=== PATIENT | male | born 1935 | race Caucasian/White ===

== ENCOUNTER 2019-09-03 08:56 | Day surgery (SDC) | payer MEDICARE ==
[~2019-09-03] VITALS: Ht 162.6 cm; Wt 57.2 kg
[~2019-09-03 08:56] MED LIST: COLACE 100100 MG/CAP PO; ELIQUIS 5MG PO; LINZESS290CAP PO; LOPRESSOR 225 MG/TAB PO; MIRALAX PA17 GM/Dose PO; NORVASC 10MG10 MG PO; TAMBOCOR150 MG PO
--- NOTE | 2019-09-03 09:15 | NUR ---
20g PERIPHERAL IV INSERTED TO LEFT FOREARM. LABS DRAWN UPON INSERTION AND SENT TO LAB.
[2019-09-03 09:25] VITALS: BP 169/85; PULSE 59; TEMP 98.1
--- NOTE | 2019-09-03 09:30 | NUR ---
CALLED PATIENCE, RT, FOR EKG BUT RT BUSY IN ED AT THIS TIME.
[2019-09-03] MEDS ORDERED: PACERONE200 MG PO (09:33)
[2019-09-03] MEDS ORDERED: ASPIRIN 81M81 MG/TA2 PO (09:33)
[2019-09-03] MEDS ORDERED: ELIQUIS 2.5 PO (09:35)
[2019-09-03] MEDS ORDERED: ALAVERT10 M1 PO (09:35)
[2019-09-03] MEDS ORDERED: PLETAL50 MG PO (09:36)
[2019-09-03] MEDS ORDERED: LIPITOR 80MG80 MG PO (09:36)
[2019-09-03] MEDS ORDERED: ZANTAC 150MG T150 MG PO (09:37)
[2019-09-03 09:44] LABS: POTASSIUM 4.3 mmol/L (3.4-5.0)
[2019-09-03 09:56] LABS: INR 1.4 (0.8-3.0); PROTHROMBIN TIME 16.1 SECONDS (9.7-12.8)
--- NOTE | 2019-09-03 10:19 | NUR ---
CONSENT SIGNED AND ON CHART. PATIENCE COMPLETING EKG AT THIS TIME.
--- NOTE | 2019-09-03 10:37 | NUR ---
PROCEDURE CANCELED BY DR JOHNSON D/T PT BEING IN SR WITH RATE CONTROLLED. EKG TO CONFIRM. PERIPHERAL IV DISCONTINUED TO LEFT FOREARM. PATIENT ABLE TO DRESS INDEPENDENTLY. PATIENT AMBULATED TO EXIT WITH FAMILY. NO DISCHARGE INSTRUCTIONS REQUIRED.
== END 2019-09-03 15:00 | disposition home or self-care (01) ==
LOC: COL.CAR 08:56
PROVIDERS: Internal Medicine Interventional Cardiology
DX: I48.0 Paroxysmal atrial fibrillation (principal); I25.10 Atherosclerotic heart disease of native coronary artery without angina pectoris; I10 Essential (primary) hypertension; I48.92 Unspecified atrial flutter; I47.1 Supraventricular tachycardia; I73.9 Peripheral vascular disease, unspecified; Z86.73 Personal history of transient ischemic attack (TIA), and cerebral infarction without residual deficits; Z95.1 Presence of aortocoronary bypass graft; Z87.891 Personal history of nicotine dependence; Z79.01 Long term (current) use of anticoagulants; Z79.82 Long term (current) use of aspirin; Z88.8 Allergy status to other drugs, medicaments and biological substances; Z88.6 Allergy status to analgesic agent; Z91.018 Allergy to other foods
CPT/HCPCS: J2704; J7030

== ENCOUNTER 2024-04-22 13:18 | Inpatient (IN) | payer MEDICARE ==
[2024-04-22] VITALS (17 sets, daily range): BP systolic 87–137; BP diastolic 19–101; PULSE 62–127; TEMP 97.5–98.3
[~2024-04-22] VITALS: Ht 162.6 cm; Wt 54.1 kg
[~2024-04-22 13:18] MED LIST changes: +ALAVERT10 M1 PO; +ASPIRIN 81M81 MG/TA2 PO; +COREG 25MG25 MG/TAB PO; +COREG 6.256.25 MG/TA PO; +ELIQUIS 2.5 PO; +IRON TABLETS325 MG PO; +LIPITOR 80MG80 MG PO; +PACERONE200 MG PO; +PEPCID 20MG TAB20 MG PO; +PLETAL50 MG PO; +ZANTAC 150MG T150 MG PO
--- NOTE | 2024-04-22 14:53 | NUR ---
1315: Receiving Medical staff nurse notified senior writer, Trade Show Manager RN, she received verbal report and sending nurse stated HR was in the 120s-140s since admission. Nadine, receiving nurse, questioned HR and was told the pts HR has been at this rate since admission and has been seeing Cardiology, Dr. Garza, the past few months. Denied any cardiac symptoms. 1318: Trade Show Manager reached out to admitting physician, Dr. Marina, to notify of HR and no intervention prior to transfer. Dr. Marina requested to halt transfer until pt was rate controlled, as accepting facility as no step down beds available. 1320: Trade Show Manager called [facility] main line and spoke with sending nurse and stated to halt transport until the pts HR was rate controlled and once achieved to call back with update and will ensure accepting Provider will move forward with pt admit. Nurse verbalized understanding and will relay to sending Provider, Dr. Mcqueen. 1330: [facility] nurse reached back out to Trade Show Manager stating pt was given x1 IVP of diltiazem and HR is now between 60-90 and the pt was being transported out of the facility. Trade Show Manager acknowledged change but stated [facility] would not accept the transfer until there is another Provider to Provider discussion; relayed Dr. Parra in house phone. 1337: Dr. Marina reached back out to Trade Show Manager stating the pt was okay to transfer, HR is not rate controlled in the 70s. Trade Show Manager communicated with [facility] nurse and ok'd to move forward with transfer once again.
[2024-04-22] MEDS ORDERED: LR 1,000 ML IV SCH (15:15)
[2024-04-22] MEDS ORDERED: FLOMAX 0.40.4 MG/CAP PO (15:23)
[2024-04-22] MEDS ORDERED: CORDARONE200 MG/TAB PO (15:23)
[2024-04-22] MEDS ORDERED: NS 1,000 ML IV SCH ×2 (15:30→16:45)
[2024-04-22] MEDS ORDERED: Acetaminophen 500 MG TAB PO PRN (15:30)
[2024-04-22] MEDS ORDERED: Ondansetron 4 MG/2 ML VIAL IV PRN (15:30)
[2024-04-22] MEDS ORDERED: oxyCODONE 5 MG TAB PO PRN (16:15)
[2024-04-22 16:46] LABS: BASO % 0.4 % (0.0-2.0); EOS # 0.1 K/mm3 (0.0-0.7); EOS % 1.1 % (0.0-4.0); GRAN # 8.4 K/mm3 (1.4-6.5); GRAN % 78.7 % (42.2-75.2); HEMATOCRIT 41.5 % (42.0-52.0); HEMOGLOBIN 14.5 g/dl (13.5-18.0); LYMPH # 1.3 K/mm3 (1.2-3.4); LYMPH % 12.3 % (20.0-51.0); MEAN CELL VOLUME 90 fl (80.0-100.0); MEAN CORPUSCULAR HEMOGLOBIN 32 pg (27-31); MEAN CORPUSCULAR HGB CONC 35 g/dl (33.0-37.0); MEAN PLATELET VOLUME 9.6 fl (7.4-10.4); MONO # 0.8 K/mm3 (0.1-0.6); MONO % 7.2 % (1.7-9.3); PLATELET COUNT 190 K/mm3 (130-400); RED BLOOD COUNT 4.61 M/mm3 (4.20-5.60); REDCELL DISTRIBUTION WIDTH-CV 12.8 % (11.5-14.5)
[2024-04-22 16:59] LABS: ALBUMIN 4.2 g/dL (3.4-4.8); CALCIUM 9.5 mg/dL (8.4-10.2); CREATININE, serum 0.72 mg/dL (0.72-1.25); MAGNESIUM 1.6 mg/dL (1.6-2.6); POTASSIUM 3.8 mEq/L (3.5-4.5); TOTAL PROTEIN 7.4 g/dl (6.2-8.1)
--- NOTE | 2024-04-22 18:16 | NUR ---
Pt arrived to medical floor from EMS as a transfer from [facility] in [place]. Admission intake and assessment completed. Fall tips discussed with pt and fall precautions implemented. Pt is A&O x4. VSS with telemetry in place showing an irregular heart rhythm. Hospitalist aware. Oriented pt to room, call light, and bathroom. 20g IV intiated into RAC by HELEN Stinson, pt tolerated well with no complications. Home medications, allergies, and pharamcy reviewed. Pt states he has mild flank pain to his right back side. Pt has no request at this time. Call light within reach and fall precautions in place.
--- NOTE | 2024-04-22 18:51 | NUR ---
BRANDON Jurado notifed of HR sustaining in 150s on telemetry. BRANDON Jurado stated she would change cardizem order to 10mg/hr.
--- NOTE | 2024-04-22 19:34 | NUR ---
BRANDON Jurado notifed by phone of HR sustaining in low 60s. BRANDON Jurado stated she would put new order for cardizem at 5mg/hr. HELEN Paredes notifed.
--- NOTE | 2024-04-22 19:35 | NUR ---
Initial assessment done- Cardizem drip decreased to 5mg/hr per order just obtained from Rhiannon CROP DUSTER HELPER,,taking every 15 minute vitals per policy, pt alert/oriented, denies pain, denies SOB, o2 sats 94% on 1L/nc, IV fluids of NS at 100cc/hr, Bed alarm on- understands to call for assistance up-- tele on, afib 77/min
[2024-04-22] MEDS ORDERED: Cilostazol 100 MG TAB PO SCH (21:00)
[2024-04-22] MEDS ORDERED: Atorvastatin 80 MG TAB PO SCH (21:00)
--- NOTE | 2024-04-22 21:30 | NUR ---
Dr. Garza here to see pt, did tell him about cardizem drip was increased to 10mg/hr for just 45 minutes but then pulse down to 50/min, so hospitalist decreased to 5 mg/hr,, he agrees, told of his recent B/P,s, aware, now B/P 96/,65 afib,, Dr. lopez , he did look at telemetry also. States no cardioversion tomorrow - he will reasses tomorrow AM.
[2024-04-23] VITALS (9 sets, daily range): BP systolic 103–115; BP diastolic 53–76; PULSE 66–136; TEMP 97.9–98.5
--- NOTE | 2024-04-23 05:45 | NUR ---
Did have just a few very short naps during the night,, continues with the Cardizem drip at 5mg/hr , HR remains afib, rate 72/min, will go up to 120/min when getting up to bathroom, but comes right back down within minutes. B/P staying stable at 106 SBP,,, o2 at 1L/nc, SCD,s on, IV fluids are completed now-no new IV bags ordered. Pt is tolerating po without nausea, remains on Zosyn IV as ordered.
[2024-04-23 06:58] LABS: BASO % 0.4 % (0.0-2.0); EOS # 0.2 K/mm3 (0.0-0.7); EOS % 2.3 % (0.0-4.0); GRAN # 6.5 K/mm3 (1.4-6.5); GRAN % 68.3 % (42.2-75.2); HEMATOCRIT 37.7 % (42.0-52.0); LYMPH # 1.8 K/mm3 (1.2-3.4); LYMPH % 18.6 % (20.0-51.0); MEAN CELL VOLUME 92 fl (80.0-100.0); MEAN CORPUSCULAR HEMOGLOBIN 32 pg (27-31); MEAN CORPUSCULAR HGB CONC 35 g/dl (33.0-37.0); MEAN PLATELET VOLUME 11.1 fl (7.4-10.4); MONO % 10.2 % (1.7-9.3); PLATELET COUNT 154 K/mm3 (130-400); REDCELL DISTRIBUTION WIDTH-CV 13.2 % (11.5-14.5)
[2024-04-23 07:02] LABS: ALBUMIN 3.7 g/dL (3.4-4.8); CREATININE, serum 0.77 mg/dL (0.72-1.25); POTASSIUM 4.3 mEq/L (3.5-4.5); TOTAL PROTEIN 6.6 g/dl (6.2-8.1)
--- NOTE | 2024-04-23 07:39 | NUR ---
Bedside report received from HELEN Paredes. Pt resting in bed with no complaints. Call light within reach. Luke garcia verifed with HELEN Paredes. Call light within reach.
[2024-04-23] MEDS ORDERED: Amiodarone 200 MG TAB PO SCH (09:00)
[2024-04-23] MEDS ORDERED: Digoxin 0.25 MG/ML 2 ML VIAL IV ONE (12:30)
--- NOTE | 2024-04-23 13:05 | NUR ---
ornamental iron worker apprentice met with pt and his eldest son, Alex [phone] to discuss discharge planning. pt reports he lives alone in [place]. He sees Smita Ba for PCP needs and obtains medications from [facility] with no difficulties. He reports to be independent with ADLS and uses a cane for DME. He does express that he is "clumsy" and has poor balance. Pt does not state he furniture surfs at home. SW inquired about Home Health as an option, but pt's son reports pt is still out in the community and works on his garden and cuts wood. SW advised he would likely not qualify. SW encouraged him to be careful at home and try to be aware of any hazards so he did not have a fall, which could lead to further medical problems. Pt appeared receptive to this information. He confirmed the DPOA-HC on file listing his son, Dami [phone] (home) and also, Mariah's information listed. Pt reports his son, alex is fine to be listed as a contact as well but notes is not DPOA-HC. Discharge Plan: home
--- NOTE | 2024-04-23 13:08 | NUR ---
D: Counselor Education Professor stopped by room on rounds. A: Pt was resting and content with grand-daughter and son in the room. Pt has no needs right now, but appreciated the ship boat or barge mate stopping in. P: Counselor Education Professor informed pt that if he needed anything from the ship boat or barge mate area to let his nurse know. Counselor Education Professor will follow up as needed.
[2024-04-23] MEDS ORDERED: Famotidine 20 MG TAB PO SCH (14:00)
--- NOTE | 2024-04-23 16:18 | NUR ---
Dr. Marina notifed that pt HR sustaining in mid 70s and this nurse asked Dr. Marina if there was a parameter to following for next dose of IV Digoxin. Dr. Marina stated that she did not want a parameter in place as the pt has a pacemaker and that should sustain HR.
[2024-04-23] MEDS ORDERED: Digoxin 0.25 MG/ML 2 ML VIAL IV SCH (18:30)
[2024-04-24 02:52] VITALS: BP 125/61; PULSE 73; TEMP 97.6
--- NOTE | 2024-04-24 04:09 | NUR ---
TELE MONITOR CALLED APPROXIMATEY 2150 PT IN AFIB RVR. BELEM FLORES APRN NOTIFIED OF PT HR SUSTAINING IN THE 130'S. VORB TO INCREASE CARDIZEM DRIP TO 10MG, PER PROVIDER SHE WILL BE ENTERING THE ORDERS.
--- NOTE | 2024-04-24 06:24 | NUR ---
PT self converted to NSR paced sustaining in the 60-70's Remains asymptomatic. Bp noted to be 104/42. Provider RICARDO Carranza notified, TORB to change Cardizem drip to 7.5mg/hr. Provider states she will update orders.
[2024-04-24 06:38] LABS: BASO % 0.5 % (0.0-2.0); EOS # 0.4 K/mm3 (0.0-0.7); EOS % 4.9 % (0.0-4.0); GRAN # 5.4 K/mm3 (1.4-6.5); GRAN % 65.7 % (42.2-75.2); HEMATOCRIT 37.1 % (42.0-52.0); HEMOGLOBIN 12.5 g/dl (13.5-18.0); LYMPH # 1.4 K/mm3 (1.2-3.4); LYMPH % 17.3 % (20.0-51.0); MEAN CELL VOLUME 94 fl (80.0-100.0); MEAN CORPUSCULAR HEMOGLOBIN 32 pg (27-31); MEAN CORPUSCULAR HGB CONC 34 g/dl (33.0-37.0); MEAN PLATELET VOLUME 10.2 fl (7.4-10.4); MONO # 0.9 K/mm3 (0.1-0.6); MONO % 11.4 % (1.7-9.3); PLATELET COUNT 195 K/mm3 (130-400); RED BLOOD COUNT 3.96 M/mm3 (4.20-5.60); REDCELL DISTRIBUTION WIDTH-CV 13.2 % (11.5-14.5)
[2024-04-24 07:12] LABS: ALBUMIN 3.5 g/dL (3.4-4.8); BILIRUBIN,TOTAL 0.8 mg/dL (0.2-1.2); CREATININE, serum 0.78 mg/dL (0.72-1.25); POTASSIUM 3.8 mEq/L (3.5-4.5); TOTAL PROTEIN 6.4 g/dl (6.2-8.1)
[2024-04-24 07:22] VITALS: BP 103/62; PULSE 70; TEMP 97.5
--- NOTE | 2024-04-24 09:45 | NUR ---
Assessment completed. A/O x4. Very pleasant and cooperative. Denies pain or needs. Cardizem infuses as ordered to RFA without s/s complications. Fall precautions in place.
[2024-04-24] MEDS ORDERED: Carvedilol 6.25 MG TAB PO SCH (11:12)
[2024-04-24] MEDS ORDERED: Digoxin 0.25 MG TAB PO SCH (11:15)
[2024-04-24 11:23] VITALS: BP 108/57; PULSE 65; TEMP 98.2
--- NOTE | 2024-04-24 13:30 | NUR ---
Patient tolerated showering. Now sitting in chair visiting with family. Cardizem infusing as ordered. Digoxin and Coreg administered.
--- NOTE | 2024-04-24 14:24 | NUR ---
Spoke to WENDY Hutchinson earlier this afternoon about discharge plan for patient. Jasper stated that from a cardiology standpoint, the patient can discharge home if tolerates being off the cardizem gtt. Digoxin and Coreg administered po- will shut cardizem off at approximately 1445. Notified Dr. Marina- request patient ambulate in hallway and nurse call with heart rate. Will ambulate patient once cardizem gtt is d/c'd.
[2024-04-24] MEDS ORDERED: LANOXIN 0.25M0.25 MG PO (14:50)
--- NOTE | 2024-04-24 14:50 | NUR ---
Cardizem gtt d/c'd as ordered. Pt sitting up in chair visiting with family. HR 67. IV site to LAC d/c'd with cath tip intact- site red.
[2024-04-24] MEDS ORDERED: AMOXICILLIN 8751 TAB PO (14:51)
[2024-04-24 15:39] VITALS: BP 115/65; PULSE 44; TEMP 97.5
--- NOTE | 2024-04-24 15:45 | NUR ---
Patient ambulated in hallway approximately 250 feet x1 assist, using cane. Resting HR 60-70's. After ambulation HR 96. HR after 5-10 minutes of rest returned to 60-70's. Dr. Marina notified.
--- NOTE | 2024-04-24 17:04 | NUR ---
Discharge instructions reviewed with patient and patient's son- both verbalize understanding. INT to LFA d/c'd with cath tip intact. Tele d/c'd. Pt escorted to private vehicle, via w/c, and discharged home with son/family.
== END 2024-04-24 17:06 | disposition home or self-care (01) | DRG 445 ==
LOC: MEDICAL 13:18
PROVIDERS: ADMIT Internal Medicine
DX: K81.0 Acute cholecystitis (principal); I50.32 Chronic diastolic (congestive) heart failure; I48.91 Unspecified atrial fibrillation; N40.0 Benign prostatic hyperplasia without lower urinary tract symptoms; I73.9 Peripheral vascular disease, unspecified; E78.5 Hyperlipidemia, unspecified; J44.9 Chronic obstructive pulmonary disease, unspecified; I11.0 Hypertensive heart disease with heart failure; K90.0 Celiac disease; I25.10 Atherosclerotic heart disease of native coronary artery without angina pectoris; K21.9 Gastro-esophageal reflux disease without esophagitis; G47.30 Sleep apnea, unspecified; G47.00 Insomnia, unspecified; K58.9 Irritable bowel syndrome, unspecified; I34.0 Nonrheumatic mitral (valve) insufficiency; Z87.891 Personal history of nicotine dependence; Z79.01 Long term (current) use of anticoagulants; Z79.82 Long term (current) use of aspirin; Z79.899 Other long term (current) drug therapy; Z95.1 Presence of aortocoronary bypass graft; Z95.0 Presence of cardiac pacemaker; Z90.49 Acquired absence of other specified parts of digestive tract; Z88.6 Allergy status to analgesic agent; Z88.8 Allergy status to other drugs, medicaments and biological substances; I25.2 Old myocardial infarction; Z87.01 Personal history of pneumonia (recurrent); Z86.73 Personal history of transient ischemic attack (TIA), and cerebral infarction without residual deficits
CPT/HCPCS: J1160; J1650; J2543; J7030